=== PATIENT | male | born 1955 | race Caucasian/White ===

== ENCOUNTER 2017-03-06 18:33 | Emergency (ER) | payer OTHER ==
--- NOTE | 2017-03-06 19:00 | ER NURSING DOCUMENTATION ---
Nurse's Notes [facility] Name:Checo Smith Age:61 yrs Sex:Male :1955 Arrival Date:03/06/2017 Time:18:33 Bed2 Private MD: Diagnosis:Hand Laceration Presentation: 03/06 18:43 Acuity: WOO 3 sc1 18:48 Presenting complaint: Patient states: pt has skin tear to right hand while hiking. bw2 Transition of care: patient was not received from another setting of care. Complicating Factors: There are no complicating factors for this patient. 18:48 Method Of Arrival: Walk In 2 Triage Assessment: 18:50 General: Appears in no apparent distress, Behavior is appropriate for age. Pain: bw2 Complains of pain in right hand Pain currently is 4 out of 10 on a pain scale. Quality of pain is described as Pain began 2 hours ago. Injury Description: Laceration sustained to right hand. Historical: - Allergies: No known drug Allergies; - Tetanus: < 10 years. - Ebola Screening: : Patient negative for fever greater than or equal to 101.5 degrees Fahrenheit, and additional compatible Ebola Virus Disease symptoms. Patient denies exposure to infectious person. Patient denies travel to an Ebola-affected area in the 21 days before illness onset. No symptoms or risks identified at this time. . - Immunization history: Flu Vaccine < 1 year. - Social history: Smoking status: Patient states was never smoker of tobacco. Patient uses. Screenin:51 Infectious Disease Risk None. Abuse screen: Denies threats or abuse. Nutritional bw2 screening: No deficits noted. On. Assessment: 18:51 See Triage Assessment done by same RN. bw2 18:59 Injury Description: Laceration is clean. bw2 18:59 Musculoskeletal: No deficits noted. bw2 Vital Signs: 18:50 BP 160 / 80; Pulse 73; Resp 18 S; Temp 97.8(O); Pulse Ox 93% on R/A; Weight 92.99 kg; bw2 Height 5 ft. 6 in. (167.64 cm); Pain 4/10; 18:50 Body Mass Index 33.09 (92.99 kg, 167.64 cm) bw2 ED Course: 18:36 Patient arrived in ED. ama 18:43 Luba Johnson, RN is Primary Nurse. ri1 18:43 Triage completed. sc1 18:48 Wound care to skin tear located on right hand was Irrigation Normal Saline Patient arc tolerated well. 18:51 Valuables Remains with patient. 2 18:52 Rene Trivedi MD is Attending Physician. rivera 18:56 Dressings: Steri strips 1/2 " X 3;. bw2 Administered Medications: No medications were administered Outcome: 18:55 Discharge ordered by . rivera 18:59 Discharged to home ambulatory. 2 18:59 Condition: good 18:59 Discharge instructions given to patient, Instructed on discharge instructions, follow up and referral plans. wound care. 18:59 Patient left the ED. 2 Signatures: Luba Johnson RN RN sc1 Rene Trivedi MD MD jm Averdick, Andrew, Reg Reg Rere Mendoza, Reg Reg Cammy Blake bw2
--- NOTE | 2017-03-06 19:00 | ER PHYSICIAN DOCUMENTATION ---
Physician Documentation [facility] Name:Checo Smith Age:61 yrs Sex:Male :1955 Arrival Date:03/06/2017 Time:18:33 Bed2 Private MD: Rene Munoz Disposition: 03/06/17 18:55 Discharged to Home/Self Care. Impression: Hand Laceration. - Condition is Good. - Discharge Instructions: Abrasion - SKIN AVULSION. - Medical Reconciliation form form. - Follow up: Private Physician; When: As needed; Reason: Continuance of care. - Problem is new. - Symptoms have improved. HPI: 03/06 18:52 This 61 yrs old Male presents to ER via Walk In with complaints of Laceration jm To Hand - RIGHT. 18:52 The patient has a laceration related to: falling hiking- hit rocks. . The laceration(s) jm is(are) located on the right hand. Onset: The symptom(s)/episode began/occurred just prior to arrival. Pt wondering if he needs sutures. . Historical: - Allergies: No known drug Allergies; - Tetanus: < 10 years. - Ebola Screening: : Patient negative for fever greater than or equal to 101.5 degrees Fahrenheit, and additional compatible Ebola Virus Disease symptoms. Patient denies exposure to infectious person. Patient denies travel to an Ebola-affected area in the 21 days before illness onset. No symptoms or risks identified at this time. . - Immunization history: Flu Vaccine < 1 year. - Social history: Smoking status: Patient states was never smoker of tobacco. Patient uses. ROS: 18:53 MS/extremity: Positive for laceration. jm 18:53 Skin: Positive for laceration(s). Exam: 18:53 Musculoskeletal/extremity: Pulses: are normal with no appreciated deficits, Sensation jm intact. 18:53 Constitutional: This is a well developed, well nourished patient who is awake, alert, and in no acute distress. 18:53 Musculoskeletal/extremity: Extremities: grossly normal except: noted in the dorsum of jm right hand: laceration, Sensation intact. 18:53 Skin: Appearance: Color: pink, injury, avulsion(s), a very small 2 cm(s). Vital Signs: 18:50 BP 160 / 80; Pulse 73; Resp 18 S; Temp 97.8(O); Pulse Ox 93% on R/A; Weight 92.99 kg; bw2 Height 5 ft. 6 in. (167.64 cm); Pain 4/10; 18:50 Body Mass Index 33.09 (92.99 kg, 167.64 cm) bw2 MDM: 18:52 Patient medically screened. rivera 18:55 Differential diagnosis: skin tear. Data reviewed: vital signs, nurses notes, and as a jm result, I will discharge patient. Counseling: I had a detailed discussion with the patient and/or guardian regarding: the historical points, exam findings, and any diagnostic results supporting the discharge/admit diagnosis, the need for outpatient follow up, with the patient's primary care provider. ED course: RN repaired skin tear. Dispensed Medications: No medications were administered Signatures: Rene Trivedi MD MD jm Wisely, [facility]
== END 2017-03-06 19:00 | disposition home or self-care (01) ==
LOC: ER 18:33
DX: S61.411A Laceration without foreign body of right hand, initial encounter (principal); W19.XXXA Unspecified fall, initial encounter; Y92.838 Other recreation area as the place of occurrence of the external cause; Y93.01 Activity, walking, marching and hiking
CPT/HCPCS: 99283